=== PATIENT | male | born 1970 | race Hispanic/Latino ===

== ENCOUNTER 2019-02-09 01:39 | Emergency (ER) | payer SELFPAY ==
[2019-02-09 02:22] LABS: BASOPHILS % (AUTO) 0.3 % (0.0-5.0); EOSINOPHILS % (AUTO) 2.6 % (0.0-8.0); HEMATOCRIT 44.5 % (42-54); LYMPHOCYTES % (AUTO) 21.8 % (21.0-51.0); MEAN CORPUSCULAR HEMOGLOBIN 31.3 pg (27.0-33.0); MEAN CORPUSCULAR HGB CONC 35.1 g/dL (32.0-36.0); MEAN CORPUSCULAR VOLUME 89.4 fL (79-99); MONOCYTES % (AUTO) 8.7 % (3.0-13.0); NEUTROPHILS % (AUTO) 66.3 % (40.0-77.0); PLATELET COUNT (AUTO) 168 K/uL (130-400); RED BLOOD CELL COUNT(AUTO) 4.98 MIL/uL (4.50-6.20); RED CELL DISTRIBUTION WIDTH 12.7 % (11.0-15.5); WHITE BLOOD COUNT (AUTO) 8.9 K/uL (4.8-10.8)
[2019-02-09 02:30] LABS: CREATININE 0.9 mg/dL (0.5-1.5); POTASSIUM 3.6 mmol/L (3.5-5.1)
[2019-02-09 02:33] LABS: INR 1.06 (0.85-1.15); PARTIAL THROMBOPLASTIN TIME 32.2 SEC (26.3-35.5); PROTHROMBIN TIME 11.1 SEC (9.6-11.6)
[2019-02-09 02:44] LABS: ALBUMIN 3.4 g/dL (3.5-5.0); BILIRUBIN,TOTAL 0.6 mg/dL (0.2-1.0); CRP QUANTITATIVE 17.2 mg/L (0.00-9.0); TOTAL PROTEIN, SERUM 7.2 g/dL (6.0-8.3)
[2019-02-09] MEDS ORDERED: SODIUM CHLORIDE 0.9% 1000ML 1,000 ML IV ONE ×2 (02:47→03:34)
[2019-02-09 02:57] LABS: APPEARANCE,URINE Cloudy (CLEAR); BILIRUBIN,URINE Negative (NEGATIVE); COLOR,URINE Dark Yellow (YELLOW); GLUCOSE, URINE (UA) >=1000 mg/dL (NEGATIVE); KETONES,URINE Negative (NEGATIVE); LEUKOCYTE ESTERASE ,URINE Small (NEGATIVE); NITRATE,URINE Negative (NEGATIVE); OCCULT BLOOD,URINE Trace (NEGATIVE); PROTEIN,URINE POS 1+ mg/dL (NEGATIVE)
[2019-02-09 03:05] LABS: AMPHET/METH SCREEN,URINE NEGATIVE (NEGATIVE); BARBITURATE SCREEN, URINE NEGATIVE (NEGATIVE); BENZODIAZEPINES SCREEN,URINE NEGATIVE (NEGATIVE); CANNABINOID SCREEN,URINE NEGATIVE (NEGATIVE); COCAINE SCREEN,URINE POSITIVE (NEGATIVE); OPIATE SCREEN,URINE NEGATIVE (NEGATIVE); PHENCYCLIDINE SCREEN,URINE NEGATIVE (NEGATIVE)
[2019-02-09 03:09] LABS: BACTERIA,URINE None Seen /HPF (None Seen); MUCUS,URINE Rare LPF (None Seen); SQUAMOUS EPITHELIAL CELL,UR Few /HPF (0-2); YEAST,URINE BUDDING None Seen /HPF (None Seen)
[2019-02-09] MEDS ORDERED: DiphenhydrAMINE HCL 50 MG/ML VIAL ONE (03:23)
[2019-02-09] MEDS ORDERED: CEFTRIAXONE SODIUM 1 GM ONE (03:23)
[2019-02-09] MEDS ORDERED: KETOROLAC TROMETHAMINE 30MG/ML ONE (03:24)
[2019-02-09 03:31] LABS: ERYTHROCYTE SEDIMENTATION RATE 13 MM/HR (0-15)
== END 2019-02-09 04:56 | disposition home or self-care (01) ==
LOC: EDH 01:39
DX: T58.8X1A Toxic effect of carbon monoxide from other source, accidental (unintentional), initial encounter (principal); J01.00 Acute maxillary sinusitis, unspecified; I10 Essential (primary) hypertension; E11.65 Type 2 diabetes mellitus with hyperglycemia; Z72.0 Tobacco use; Y92.89 Other specified places as the place of occurrence of the external cause
CPT/HCPCS: 36415; 70486; 71045; 80053; 80305; 81001; 82375; 82550; 84484; 85025; 85610; 85651; 85730; 86140; 93005; 96361; 96374; 96375; 99285; J0696; J1200; J1885; J7030 ×2

== ENCOUNTER 2020-05-03 00:39 | Emergency (ER) | payer OTHER ==
[2020-05-03] MEDS ORDERED: ORPHENADRINE CITRATE 30 MG/ML ML ONE (01:01)
[2020-05-03] MEDS ORDERED: KETOROLAC TROMETHAMINE 60 MG/2 ML VIAL ONE (01:02)
[2020-05-03] MEDS ORDERED: MORPHINE SULFATE 4 MG/1ML SYG ONE (02:55)
[2020-05-03] MEDS ORDERED: LIDOCAINE 5% TOPICAL PATCH TP ONE (02:55)
== END 2020-05-03 04:12 | disposition home or self-care (01) ==
LOC: EDH 00:39
DX: M54.5 Low back pain (principal); E11.9 Type 2 diabetes mellitus without complications; Z72.0 Tobacco use
CPT/HCPCS: 72100; 96372 ×3; 99283; J1885; J2270; J2360

== ENCOUNTER 2020-05-04 15:41 | Emergency (ER) | payer OTHER ==
[2020-05-04] MEDS ORDERED: ORPHENADRINE CITRATE 30 MG/ML ML ONE (15:53)
[2020-05-04] MEDS ORDERED: KETOROLAC TROMETHAMINE 30MG/ML ONE (15:53)
[2020-05-04] MEDS ORDERED: DIAZEPAM 5 MG TABLET ONE (15:54)
== END 2020-05-04 17:11 | disposition home or self-care (01) ==
LOC: EDH 15:41
DX: S39.012A Strain of muscle, fascia and tendon of lower back, initial encounter (principal); E11.9 Type 2 diabetes mellitus without complications; Z72.0 Tobacco use; W01.0XXA Fall on same level from slipping, tripping and stumbling without subsequent striking against object, initial encounter; Y93.89 Activity, other specified; Y92.89 Other specified places as the place of occurrence of the external cause; Y99.8 Other external cause status
CPT/HCPCS: 72131; 96372 ×2; 99284; J1885; J2360